=== PATIENT | male | born 1975 | race Caucasian/White ===

== ENCOUNTER 2024-09-19 06:20 | Day surgery (SDC) | payer OTHER, SELFPAY ==
[2024-09-19 08:04] LABS: Glucose - Point of Care 123 mg/dl (70-99)
== END 2024-09-19 10:11 | disposition home or self-care (01) ==
LOC: GI 06:20
PROVIDERS: ATTENDING PHYSICIAN Internal Medicine Gastroenterology
DX: Z12.11 Encounter for screening for malignant neoplasm of colon (principal); R19.4 Change in bowel habit; K64.8 Other hemorrhoids; K62.89 Other specified diseases of anus and rectum; D12.2 Benign neoplasm of ascending colon; D12.3 Benign neoplasm of transverse colon
CPT/HCPCS: 45385; 45380; 88305; 82962